=== PATIENT | female | born 2005 | race Hispanic/Latino ===

== ENCOUNTER 2024-12-14 11:36 | Emergency (ER) | payer BC, OTHER ==
--- OUTSIDE RECORDS SUMMARY | 2024-12-14 11:42 | XMS REPORT | Continuity of Care Document ---
Author Name Unknown Address [address] [facility] [place] [address] [facility] Address [address] [facility] [place] [address] Care Team Providers Care Parole Supervisor Name Role Phone CARMELITA VOGEL Primary Care Physician Unavailab JOSE Peacock Attending Clinician Unavailable IZZY WOODSON Attending Clinician Unavail able JOEY GOMEZ Attending Clinician Unavailable JOSE PÉREZ Attending Clinician Unavailable SCOTT BUCHANAN Attending Clinician Unavailable [id number] Attending Clinician Unavailable VESNA LAURA Attending Clinician Unavailable JACINTO SALDANA Attending Clinician Unavailable Jacinto Herndon Attending Clinician [phone] Unknown, Attending Attending Clinician Unavailab Melody Blake Attending Clinician [phone] MELODY ZALDIVAR Attending Clinician Unavailable Doctor Unassigned, [place] Attending Clinician U Carmelita Lerma Attending Clinician [phone] Lab, Ang - Db Attending Clinician Unavailable Unknown, Attending Attending Clinician Unavailab CARMELITA Gu Attending Clinician Unavailable Casey White Attending Clinician Unavailable Sukhjinder Loving MD Attending Clinician [phone] Gilbert Christie Attending Clinician + [phone] GILBERT SUAREZ Attending Clinician Unavail able UNKNOWN, ATTENDING Attending Clinician Unavailab le Payers Payer Name Policy Type Policy Number Effective Date Expirati on Date Source [facility] CAPO ARVIN COPAY FOCUS 9 [id number] 2024 00:00:00 AMYTRADHA MIR [facility] [employer] RAIL 87 ON 9 [id number] 2023 00:00:00 Problems Condition Name Condition Details Condition Category Status Onset Date Resolution Date Last Treatment Date Treating Clinician Comments Source Psoriasis Psoriasis Disease Active 2023-05 00:00: 00 Myrna Velasquez Externa l Urinary frequency Urinary frequency Disease Active 11-11 00:00: 00 [facility] Stress incontinen ce Stress incontinen ce Disease Active 11-11 00:00: 00 [facility] Nocturnal enuresis Nocturnal enuresis Disease Active 11-11 00:00: 00 [facility] Encounter to establish care Encounter to establish care Disease Active 11-11 00:00: 00 [facility] Constipati on, unspecifie d constipati on type Constipati on, unspecifie d constipati on type Disease Active 11-11 00:00: 00 [facility] No known active problems No known active problems Disease [facility] Allergies, Adverse Reactions, Alerts Allergy Name Allergy Type Status Severity Reaction(s) Onset Date Inactive Date Treating Clinician Comments Source NO KNOWN ALLERGIE S Drug Class Active [facility] Social History Social Habit Start Date Stop Date Quantity Comments Source Sexual orientation 2024-04-22 08:48:30 Heterosexual (finding) Myrna Mccullough - External Exposure to SARS-CoV-2 (event) Not sure [facility] Gender identity [facility] ASSERTION Not Myrna Mccullough - External Alcoholic beverage intake 2024-11-07 00:00:00 2024-11-07 00:00:00 Lifetime non-drinker (finding) Myrna Mccullough - External History of Social function 2024-11-07 00:00:00 2024-11-07 00:00:00 Myrna Mccullough - External Tobacco use and exposure 2024-11-07 00:00:00 2024-11-07 00:00:00 Smokeless tobacco non-user Myrna Mccullough - External Sex 2023-06-14 21:32:15 2023-06-14 21:32:15 Female (finding) Myrna Mccullough - External Alcohol intake 2022-11-11 00:00:00 2022-11-11 00:00:00 Lifetime non-drinker (finding) [facility] Sex assigned at 2003 00:00:00 2005 00:00:00 F Myrna Mccullough - External Smoking Status Start Date Stop Date Source Never smoked tobacco Myrna Mccullough - External Medications Ordered Medication Name Filled Medication Name Start Date Stop Date Current Medication? Ordering Clinician Indication Dosage Frequency Signature (SIG) Comments Components Source predniSONE (DELTASONE) 10 MG oral tablet 11-07 00:00: 00 11-15 04:59 :00 Yes 30mg QD Take 3 tablets (30 mg total) by mouth daily for 7 days. Myrna bowden Paragard Intrauterin e Copper IU IUD - Physician Administere d ([id number]) 05-09 15:26: 42 No [id number] 1{each} 1 each, Physician Administer ed, ONCE, 1 dose, On Marine 05/09/24 at 1530 Myrna bowden Clobetasol Propionate 0.05 % apply externally Ointment 2023-05 2-16 00:00: 00 Yes [id number] Q.5D Apply 1 applicatio n. topically 2 times daily Apply to site twice daily for 5 days, then take 2 days off. Repeat as needed.. Myrna bowden DEXTROMETHO RPHAN HBR (DELSYM ORAL) 01-27 15:11: 46 01-27 00:00 :00 No Take by mouth. [facility] bromphenira mine-pseudo ephedrine-D M (BROMFED DM) 2-30-10 mg/5 mL syrup 01-27 00:00: 00 02-07 04:59 :00 No [id number] 5mL Take 5 mL by mouth 4 (four) times daily as needed for Congestion /Allergies or Cough for up to 10 days. [facility] methylPREDN ISolone 4 mg tablets 01-27 00:00: 00 02-03 04:59 :00 No [id number] Take by mouth SEE-INSTRU CTIONS for 6 days. follow package directions [facility] tuberculin ppd (TUBERSOL) injection 5 Units 10-28 16:15: 00 10-28 15:25 :00 No [id number] 5U [facility] DEXTROMETHO RPHAN HBR (DELSYM ORAL) 12-20 18:51: 34 Yes Take by mouth. [facility] IBUPROFEN/D IPHENHYDRAM INE CIT (ADVIL PM ORAL) 12-20 18:51: 34 Yes Take by mouth. [facility] DEXTROMEO RPHAN HBR (DELSYM ORAL) 12-20 13:51: 34 Yes Take by mouth. [facility] DEXTROMETHO RPHAN HBR (DELSYM ORAL) 2016-05 19:59: 36 Yes Take by mouth. [facility] IBUPROFEN/D IPHENHYDRAM INE CIT (ADVIL PM ORAL) 2016-05 19:59: 36 Yes Take by mouth. [facility] GUAIFENESIN /CODEINE PHOSPHATE (ROBITUSSIN A-C ORAL) 09-12 21:15: 17 Yes 10mL Take 10 mL by mouth. [facility] GUAIFENESIN /CODEINE PHOSPHATE (ROBITUSSIN A-C ORAL) 09-12 16:15: 17 Yes 10mL Take 10 mL by mouth. [facility] levothyroxi ne 50 mcg tablet 06-25 00:00: 00 Yes 50ug Take 50 mcg by mouth. [facility] Immunizations Ordered Immunization Name Filled Immunization Name Date Status Comments Source Meningococcal Polysaccharide (groups A, C, Y and W-135) conjugate vaccine (MCV4P) 2023-12-20 17:00:00 Completed [facility] TDAP 2023-12-20 17:00:00 Completed [facility] DTAP 2023-12-20 17:00:00 Completed [facility] HIB 4 Dose Schedule 2023-12-20 17:00:00 Completed [facility] HEPATITIS A 2023-12-20 17:00:00 Completed [facility] Hep B, Adol or Pedi Dosage 2023-12-20 17:00:00 Completed [facility] MMR 2023-12-20 17:00:00 Completed [facility] Pneumococcal 13 Conjugate, PCV13 (Prevnar 13) 2023-12-20 17:00:00 Completed [facility] Polio (IPV/OPV) 2023-12-20 17:00:00 Completed [facility] Varicella (varivax)(chicken pox) 2023-12-20 17:00:00 Completed [facility] Meningococcal B, OMV 2023-12-20 17:00:00 Completed [facility] Meningococcal Polysaccharide (groups A, C, Y and W-135) conjugate vaccine (MCV4P) 2023-01-30 00:00:00 Completed [facility] TDAP 2023-01-30 00:00:00 Completed [facility] DTAP 2023-01-30 00:00:00 Completed [facility] HIB 4 Dose Schedule 2023-01-30 00:00:00 Completed [facility] HEPATITIS A 2023-01-30 00:00:00 Completed [facility] Hep B, Adol or Pedi Dosage 2023-01-30 00:00:00 Completed [facility] MMR 2023-01-30 00:00:00 Completed [facility] Pneumococcal 13 Conjugate, PCV13 (Prevnar 13) 2023-01-30 00:00:00 Completed [facility] Polio (IPV/OPV) 2023-01-30 00:00:00 Completed [facility] Varicella (varivax)(chicken pox) 2023-01-30 00:00:00 Completed [facility] Meningococcal B, OMV 2023-01-30 00:00:00 Completed [facility] TDAP 2023-01-27 14:30:00 Completed [facility] DTAP 2023-01-27 14:30:00 Completed [facility] HIB 4 Dose Schedule 2023-01-27 14:30:00 Completed [facility] HEPATITIS A 2023-01-27 14:30:00 Completed [facility] Hep B, Adol or Pedi Dosage 2023-01-27 14:30:00 Completed [facility] MMR 2023-01-27 14:30:00 Completed [facility] Pneumococcal 13 Conjugate, PCV13 (Prevnar 13) 2023-01-27 14:30:00 Completed [facility] Polio (IPV/OPV) 2023-01-27 14:30:00 Completed [facility] Varicella (varivax)(chicken pox) 2023-01-27 14:30:00 Completed [facility] Meningococcal B, OMV 2023-01-27 14:30:00 Completed [facility] Meningococcal Polysaccharide (groups A, C, Y and W-135) conjugate vaccine (MCV4P) 2023-01-27 14:30:00 Completed [facility] Meningococcal Polysaccharide (groups A, C, Y and W-135) conjugate vaccine (MCV4P) 2022-11-15 00:00:00 Completed [facility] TDAP 2022-11-15 00:00:00 Completed [facility] DTAP 2022-11-15 00:00:00 Completed [facility] HIB 4 Dose Schedule 2022-11-15 00:00:00 Completed [facility] HEPATITIS A 2022-11-15 00:00:00 Completed [facility] Hep B, Adol or Pedi Dosage 2022-11-15 00:00:00 Completed [facility] MMR 2022-11-15 00:00:00 Completed [facility] Pneumococcal 13 Conjugate, PCV13 (Prevnar 13) 2022-11-15 00:00:00 Completed [facility] Polio (IPV/OPV) 2022-11-15 00:00:00 Completed [facility] Varicella (varivax)(chicken pox) 2022-11-15 00:00:00 Completed [facility] Meningococcal B, OMV 2022-11-15 00:00:00 Completed [facility] Meningococcal Polysaccharide (groups A, C, Y and W-135) conjugate vaccine (MCV4P) 2020-10-19 00:00:00 Completed [facility] Meningococcal B, OMV 2020-10-19 00:00:00 Completed [facility] Meningococcal Polysaccharide (groups A, C, Y and W-135) conjugate vaccine (MCV4P) 2020-10-19 00:00:00 Completed [facility] Meningococcal B, OMV 2020-10-19 00:00:00 Completed [facility] Meningococcal Polysaccharide (groups A, C, Y and W-135) conjugate vaccine (MCV4P) 2020-10-19 00:00:00 Completed [facility] Meningococcal B, OMV 2020-10-19 00:00:00 Completed [facility] Meningococcal Polysaccharide (groups A, C, Y and W-135) conjugate vaccine (MCV4P) 2020-10-19 00:00:00 Completed [facility] Meningococcal B, OMV 2020-10-19 00:00:00 Completed [facility] Meningococcal Polysaccharide (groups A, C, Y and W-135) conjugate vaccine (MCV4P) 2020-10-19 00:00:00 Completed [facility] Meningococcal B, OMV 2020-10-19 00:00:00 Completed [facility] Meningococcal Polysaccharide (groups A, C, Y and W-135) conjugate vaccine (MCV4P) 2020-10-19 00:00:00 Completed [facility] Meningococcal B, OMV 2020-10-19 00:00:00 Completed [facility] Meningococcal Polysaccharide (groups A, C, Y and W-135) conjugate vaccine (MCV4P) 2020-10-19 00:00:00 Completed [facility] Meningococcal B, OMV 2020-10-19 00:00:00 Completed [facility] Meningococcal Polysaccharide (groups A, C, Y and W-135) conjugate vaccine (MCV4P) 2014-12-08 00:00:00 Completed [facility] Tdap 2014-12-08 00:00:00 Completed [facility] Meningococcal Polysaccharide (groups A, C, Y and W-135) conjugate vaccine (MCV4P) 2014-12-08 00:00:00 Completed [facility] TDAP 2014-12-08 00:00:00 Completed [facility] Meningococcal Polysaccharide (groups A, C, Y and W-135) conjugate vaccine (MCV4P) 2014-12-08 00:00:00 Completed [facility] TDAP 2014-12-08 00:00:00 Completed [facility] Meningococcal Polysaccharide (groups A, C, Y and W-135) conjugate vaccine (MCV4P) 2014-12-08 00:00:00 Completed [facility] Tdap 2014-12-08 00:00:00 Completed [facility] Meningococcal Polysaccharide (groups A, C, Y and W-135) conjugate vaccine (MCV4P) 2014-12-08 00:00:00 Completed [facility] TDAP 2014-12-08 00:00:00 Completed [facility] Meningococcal Polysaccharide (groups A, C, Y and W-135) conjugate vaccine (MCV4P) 2014-12-08 00:00:00 Completed [facility] TDAP 2014-12-08 00:00:00 Completed [facility] Meningococcal Polysaccharide (groups A, C, Y and W-135) conjugate vaccine (MCV4P) 2014-12-08 00:00:00 Completed [facility] TDAP 2014-12-08 00:00:00 Completed [facility] Meningococcal Polysaccharide (groups A, C, Y and W-135) conjugate vaccine (MCV4P) 2014-12-08 00:00:00 Completed [facility] TDAP 2014-12-08 00:00:00 Completed [facility] Meningococcal Polysaccharide (groups A, C, Y and W-135) conjugate vaccine (MCV4P) 2014-12-08 00:00:00 Completed [facility] TDAP 2014-12-08 00:00:00 Completed [facility] Meningococcal Polysaccharide (groups A, C, Y and W-135) conjugate vaccine (MCV4P) 2014-12-08 00:00:00 Completed [facility] TDAP 2014-12-08 00:00:00 Completed [facility] HEPATITIS A 2007-08-22 00:00:00 Completed [facility] Varicella (varivax)(chicken pox) 2007-08-22 00:00:00 Completed [facility] HEPATITIS A 2007-08-22 00:00:00 Completed [facility] Varicella (varivax)(chicken pox) 2007-08-22 00:00:00 Completed [facility] HEPATITIS A 2007-08-22 00:00:00 Completed [facility] Varicella (varivax)(chicken pox) 2007-08-22 00:00:00 Completed [facility] HEPATITIS A 2007-08-22 00:00:00 Completed [facility] Varicella (varivax)(chicken pox) 2007-08-22 00:00:00 Completed [facility] HEPATITIS A 2007-08-22 00:00:00 Completed [facility] HEPATITIS A 2007-08-22 00:00:00 Completed [facility] Varicella (varivax)(chicken pox) 2007-08-22 00:00:00 Completed [facility] HEPATITIS A 2007-08-22 00:00:00 Completed [facility] Varicella (varivax)(chicken pox) 2007-08-22 00:00:00 Completed [facility] HEPATITIS A 2007-08-22 00:00:00 Completed [facility] Varicella (varivax)(chicken pox) 2007-08-22 00:00:00 Completed [facility] Varicella (varivax)(chicken pox) 2007-08-22 00:00:00 Completed [facility] HEPATITIS A 2007-08-22 00:00:00 Completed [facility] Varicella (varivax)(chicken pox) 2007-08-22 00:00:00 Completed [facility] HEPATITIS A 2007-08-22 00:00:00 Completed [facility] Varicella (varivax)(chicken pox) 2007-08-22 00:00:00 Completed [facility] HEPATITIS A 2007-02-08 00:00:00 Completed [facility] MMR 2007-02-08 00:00:00 Completed [facility] Polio (IPV/OPV) 2007-02-08 00:00:00 Completed [facility] HEPATITIS A 2007-02-08 00:00:00 Completed [facility] MMR 2007-02-08 00:00:00 Completed [facility] Polio (IPV/OPV) 2007-02-08 00:00:00 Completed [facility] HEPATITIS A 2007-02-08 00:00:00 Completed [facility] MMR 2007-02-08 00:00:00 Completed [facility] Polio (IPV/OPV) 2007-02-08 00:00:00 Completed [facility] HEPATITIS A 2007-02-08 00:00:00 Completed [facility] MMR 2007-02-08 00:00:00 Completed [facility] Polio (IPV/OPV) 2007-02-08 00:00:00 Completed [facility] HEPATITIS A 2007-02-08 00:00:00 Completed [facility] HEPATITIS A 2007-02-08 00:00:00 Completed [facility] MMR 2007-02-08 00:00:00 Completed [facility] Polio (IPV/OPV) 2007-02-08 00:00:00 Completed [facility] MMR 2007-02-08 00:00:00 Completed [facility] HEPATITIS A 2007-02-08 00:00:00 Completed [facility] MMR 2007-02-08 00:00:00 Completed [facility] Polio (IPV/OPV) 2007-02-08 00:00:00 Completed [facility] HEPATITIS A 2007-02-08 00:00:00 Completed [facility] MMR 2007-02-08 00:00:00 Completed [facility] Polio (IPV/OPV) 2007-02-08 00:00:00 Completed [facility] Polio (IPV/OPV) 2007-02-08 00:00:00 Completed [facility] HEPATITIS A 2007-02-08 00:00:00 Completed [facility] MMR 2007-02-08 00:00:00 Completed [facility] Polio (IPV/OPV) 2007-02-08 00:00:00 Completed [facility] HEPATITIS A 2007-02-08 00:00:00 Completed [facility] MMR 2007-02-08 00:00:00 Completed [facility] Polio (IPV/OPV) 2007-02-08 00:00:00 Completed [facility] DTAP 2005-01-20 00:00:00 Completed [facility] HIB 4 Dose Schedule 2005-01-20 00:00:00 Completed [facility] MMR 2005-01-20 00:00:00 Completed [facility] Pneumococcal 13 Conjugate, PCV13 (Prevnar 13) 2005-01-20 00:00:00 Completed [facility] DTAP 2005-01-20 00:00:00 Completed [facility] HIB 4 Dose Schedule 2005-01-20 00:00:00 Completed [facility] MMR 2005-01-20 00:00:00 Completed [facility] Pneumococcal 13 Conjugate, PCV13 (Prevnar 13) 2005-01-20 00:00:00 Completed [facility] DTAP 2005-01-20 00:00:00 Completed [facility] HIB 4 Dose Schedule 2005-01-20 00:00:00 Completed [facility] MMR 2005-01-20 00:00:00 Completed [facility] Pneumococcal 13 Conjugate, PCV13 (Prevnar 13) 2005-01-20 00:00:00 Completed [facility] DTAP 2005-01-20 00:00:00 Completed [facility] DTAP 2005-01-20 00:00:00 Completed [facility] HIB 4 Dose Schedule 2005-01-20 00:00:00 Completed [facility] MMR 2005-01-20 00:00:00 Completed [facility] HIB 4 Dose Schedule 2005-01-20 00:00:00 Completed [facility] Pneumococcal 13 Conjugate, PCV13 (Prevnar 13) 2005-01-20 00:00:00 Completed [facility] DTAP 2005-01-20 00:00:00 Completed [facility] HIB 4 Dose Schedule 2005-01-20 00:00:00 Completed [facility] MMR 2005-01-20 00:00:00 Completed [facility] Pneumococcal 13 Conjugate, PCV13 (Prevnar 13) 2005-01-20 00:00:00 Completed [facility] MMR 2005-01-20 00:00:00 Completed [facility] DTAP 2005-01-20 00:00:00 Completed [facility] HIB 4 Dose Schedule 2005-01-20 00:00:00 Completed [facility] MMR 2005-01-20 00:00:00 Completed [facility] Pneumococcal 13 Conjugate, PCV13 (Prevnar 13) 2005-01-20 00:00:00 Completed [facility] Pneumococcal 13 Conjugate, PCV13 (Prevnar 13) 2005-01-20 00:00:00 Completed [facility] DTAP 2005-01-20 00:00:00 Completed [facility] HIB 4 Dose Schedule 2005-01-20 00:00:00 Completed [facility] MMR 2005-01-20 00:00:00 Completed [facility] Pneumococcal 13 Conjugate, PCV13 (Prevnar 13) 2005-01-20 00:00:00 Completed [facility] DTAP 2005-01-20 00:00:00 Completed [facility] HIB 4 Dose Schedule 2005-01-20 00:00:00 Completed [facility] MMR 2005-01-20 00:00:00 Completed [facility] Pneumococcal 13 Conjugate, PCV13 (Prevnar 13) 2005-01-20 00:00:00 Completed [facility] DTAP 2005-01-20 00:00:00 Completed [facility] HIB 4 Dose Schedule 2005-01-20 00:00:00 Completed [facility] MMR 2005-01-20 00:00:00 Completed [facility] Pneumococcal 13 Conjugate, PCV13 (Prevnar 13) 2005-01-20 00:00:00 Completed [facility] Pneumococcal 13 Conjugate, PCV13 (Prevnar 13) 2004-01-13 00:00:00 Completed [facility] Polio (IPV/OPV) 2004-01-13 00:00:00 Completed [facility] Varicella (varivax)(chicken pox) 2004-01-13 00:00:00 Completed [facility] Pneumococcal 13 Conjugate, PCV13 (Prevnar 13) 2004-01-13 00:00:00 Completed [facility] Polio (IPV/OPV) 2004-01-13 00:00:00 Completed [facility] Varicella (varivax)(chicken pox) 2004-01-13 00:00:00 Completed [facility] Pneumococcal 13 Conjugate, PCV13 (Prevnar 13) 2004-01-13 00:00:00 Completed [facility] Polio (IPV/OPV) 2004-01-13 00:00:00 Completed [facility] Varicella (varivax)(chicken pox) 2004-01-13 00:00:00 Completed [facility] Pneumococcal 13 Conjugate, PCV13 (Prevnar 13) 2004-01-13 00:00:00 Completed [facility] Polio (IPV/OPV) 2004-01-13 00:00:00 Completed [facility] Varicella (varivax)(chicken pox) 2004-01-13 00:00:00 Completed [facility] Pneumococcal 13 Conjugate, PCV13 (Prevnar 13) 2004-01-13 00:00:00 Completed [facility] Polio (IPV/OPV) 2004-01-13 00:00:00 Completed [facility] Varicella (varivax)(chicken pox) 2004-01-13 00:00:00 Completed [facility] Pneumococcal 13 Conjugate, PCV13 (Prevnar 13) 2004-01-13 00:00:00 Completed [facility] Polio (IPV/OPV) 2004-01-13 00:00:00 Completed [facility] Varicella (varivax)(chicken pox) 2004-01-13 00:00:00 Completed [facility] Pneumococcal 13 Conjugate, PCV13 (Prevnar 13) 2004-01-13 00:00:00 Completed [facility] Polio (IPV/OPV) 2004-01-13 00:00:00 Completed [facility] Pneumococcal 13 Conjugate, PCV13 (Prevnar 13) 2004-01-13 00:00:00 Completed [facility] Polio (IPV/OPV) 2004-01-13 00:00:00 Completed [facility] Varicella (varivax)(chicken pox) 2004-01-13 00:00:00 Completed [facility] Varicella (varivax)(chicken pox) 2004-01-13 00:00:00 Completed [facility] Pneumococcal 13 Conjugate, PCV13 (Prevnar 13) 2004-01-13 00:00:00 Completed [facility] Polio (IPV/OPV) 2004-01-13 00:00:00 Completed [facility] Varicella (varivax)(chicken pox) 2004-01-13 00:00:00 Completed [facility] Pneumococcal 13 Conjugate, PCV13 (Prevnar 13) 2004-01-13 00:00:00 Completed [facility] Polio (IPV/OPV) 2004-01-13 00:00:00 Completed [facility] Varicella (varivax)(chicken pox) 2004-01-13 00:00:00 [facility] [facility] 00:[facility]:00 Completed [facility] HIB 4 Dose Schedule 2003 00:00:00 Completed [facility] Hep B, Adol or Pedi Dosage 2003 00:00:00 Completed [facility] Pneumococcal 13 Conjugate, PCV13 (Prevnar 13) 2003 00:00:00 Completed [facility] DTAP 2003 00:00:00 Completed [facility] HIB 4 Dose Schedule 2003 00:00:00 Completed [facility] Hep B, Adol or Pedi Dosage 2003 00:00:00 Completed [facility] Pneumococcal 13 Conjugate, PCV13 (Prevnar 13) 2003 00:00:00 Completed [facility] DTAP 2003 00:00:00 Completed [facility] HIB 4 Dose Schedule 2003 00:00:00 Completed [facility] Hep B, Adol or Pedi Dosage 2003 00:00:00 Completed [facility] Pneumococcal 13 Conjugate, PCV13 (Prevnar 13) 2003 00:00:00 Completed [facility] DTAP 2003 00:00:00 Completed [facility] DTAP 2003 00:00:00 Completed [facility] HIB 4 Dose Schedule 2003 00:00:00 Completed [facility] HIB 4 Dose Schedule 2003 00:00:00 Completed [facility] Hep B, Adol or Pedi Dosage 2003 00:00:00 Completed [facility] Pneumococcal 13 Conjugate, PCV13 (Prevnar 13) 2003 00:00:00 Completed [facility] DTAP 2003 00:00:00 Completed [facility] HIB 4 Dose Schedule 2003 00:00:00 Completed [facility] Hep B, Adol or Pedi Dosage 2003 00:00:00 Completed [facility] Pneumococcal 13 Conjugate, PCV13 (Prevnar 13) 2003 00:00:00 Completed [facility] Hep B, Adol or Pedi Dosage 2003 00:00:00 Completed [facility] DTAP 2003 00:00:00 Completed [facility] HIB 4 Dose Schedule 2003 00:00:00 Completed [facility] Hep B, Adol or Pedi Dosage 2003 00:00:00 Completed [facility] Pneumococcal 13 Conjugate, PCV13 (Prevnar 13) 2003 00:00:00 Completed [facility] Pneumococcal 13 Conjugate, PCV13 (Prevnar 13) 2003 00:00:00 Completed [facility] DTAP 2003 00:00:00 Completed [facility] HIB 4 Dose Schedule 2003 00:00:00 Completed [facility] Hep B, Adol or Pedi Dosage 2003 00:00:00 Completed [facility] Pneumococcal 13 Conjugate, PCV13 (Prevnar 13) 2003 00:00:00 Completed [facility] DTAP 2003 00:00:00 Completed [facility] HIB 4 Dose Schedule 2003 00:00:00 Completed [facility] Hep B, Adol or Pedi Dosage 2003 00:00:00 Completed [facility] Pneumococcal 13 Conjugate, PCV13 (Prevnar 13) 2003 00:00:00 Completed [facility] DTAP 2003 00:00:00 Completed [facility] HIB 4 Dose Schedule 2003 00:00:00 Completed [facility] Hep B, Adol or Pedi Dosage 2003 00:00:00 Completed [facility] Pneumococcal 13 Conjugate, PCV13 (Prevnar 13) 2003 00:00:00 Completed [facility] DTAP 2003 00:00:00 Completed [facility] HIB 4 Dose Schedule 2003 00:00:00 Completed [facility] Pneumococcal 13 Conjugate, PCV13 (Prevnar 13) 2003 00:00:00 Completed [facility] Polio (IPV/OPV) 2003 00:00:00 Completed [facility] DTAP 2003 00:00:00 Completed [facility] HIB 4 Dose Schedule 2003 00:00:00 Completed [facility] Pneumococcal 13 Conjugate, PCV13 (Prevnar 13) 2003 00:00:00 Completed [facility] Polio (IPV/OPV) 2003 00:00:00 Completed [facility] DTAP 2003 00:00:00 Completed [facility] HIB 4 Dose Schedule 2003 00:00:00 Completed [facility] Pneumococcal 13 Conjugate, PCV13 (Prevnar 13) 2003 00:00:00 Completed [facility] Polio (IPV/OPV) 2003 00:00:00 Completed [facility] DTAP 2003 00:00:00 Completed [facility] HIB 4 Dose Schedule 2003 00:00:00 Completed [facility] DTAP 2003 00:00:00 Completed [facility] HIB 4 Dose Schedule 2003 00:00:00 Completed [facility] Pneumococcal 13 Conjugate, PCV13 (Prevnar 13) 2003 00:00:00 Completed [facility] Polio (IPV/OPV) 2003 00:00:00 Completed [facility] DTAP 2003 00:00:00 Completed [facility] HIB 4 Dose Schedule 2003 00:00:00 Completed [facility] Pneumococcal 13 Conjugate, PCV13 (Prevnar 13) 2003 00:00:00 Completed [facility] Polio (IPV/OPV) 2003 00:00:00 Completed [facility] DTAP 2003 00:00:00 Completed [facility] Pneumococcal 13 Conjugate, PCV13 (Prevnar 13) 2003 00:00:00 Completed [facility] HIB 4 Dose Schedule 2003 00:00:00 Completed [facility] Pneumococcal 13 Conjugate, PCV13 (Prevnar 13) 2003 00:00:00 Completed [facility] Polio (IPV/OPV) 2003 00:00:00 Completed [facility] Polio (IPV/OPV) 2003 00:00:00 Completed [facility] DTAP 2003 00:00:00 Completed [facility] HIB 4 Dose Schedule 2003 00:00:00 Completed [facility] Pneumococcal 13 Conjugate, PCV13 (Prevnar 13) 2003 00:00:00 Completed [facility] Polio (IPV/OPV) 2003 00:00:00 Completed [facility] DTAP 2003 00:00:00 Completed [facility] HIB 4 Dose Schedule 2003 00:00:00 Completed [facility] Pneumococcal 13 Conjugate, PCV13 (Prevnar 13) 2003 00:00:00 Completed [facility] Polio (IPV/OPV) 2003 00:00:00 Completed [facility] DTAP 2003 00:00:00 Completed [facility] HIB 4 Dose Schedule 2003 00:00:00 Completed [facility] Pneumococcal 13 Conjugate, PCV13 (Prevnar 13) 2003 00:00:00 Completed [facility] Polio (IPV/OPV) 2003 00:00:00 Completed [facility] DTAP 2003 00:00:00 Completed [facility] HIB 4 Dose Schedule 2003 00:00:00 Completed [facility] Hep B, Adol or Pedi Dosage 2003 00:00:00 Completed [facility] Polio (IPV/OPV) 2003 00:00:00 Completed [facility] DTAP 2003 00:00:00 Completed [facility] HIB 4 Dose Schedule 2003 00:00:00 Completed [facility] Hep B, Adol or Pedi Dosage 2003 00:00:00 Completed [facility] Polio (IPV/OPV) 2003 00:00:00 Completed [facility] DTAP 2003 00:00:00 Completed [facility] HIB 4 Dose Schedule 2003 00:00:00 Completed [facility] Hep B, Adol or Pedi Dosage 2003 00:00:00 Completed [facility] Polio (IPV/OPV) 2003 00:00:00 Completed [facility] DTAP 2003 00:00:00 Completed [facility] HIB 4 Dose Schedule 2003 00:00:00 Completed [facility] DTAP 2003 00:00:00 Completed [facility] HIB 4 Dose Schedule 2003 00:00:00 Completed [facility] Hep B, Adol or Pedi Dosage 2003 00:00:00 Completed [facility] Polio (IPV/OPV) 2003 00:00:00 Completed [facility] DTAP 2003 00:00:00 Completed [facility] HIB 4 Dose Schedule 2003 00:00:00 Completed [facility] Hep B, Adol or Pedi Dosage 2003 00:00:00 Completed [facility] Hep B, Adol or Pedi Dosage 2003 00:00:00 Completed [facility] Polio (IPV/OPV) 2003 00:00:00 Completed [facility] DTAP 2003 00:00:00 Completed [facility] HIB 4 Dose Schedule 2003 00:00:00 Completed [facility] Hep B, Adol or Pedi Dosage 2003 00:00:00 Completed [facility] Polio (IPV/OPV) 2003 00:00:00 Completed [facility] Polio (IPV/OPV) 2003 00:00:00 Completed [facility] DTAP 2003 00:00:00 Completed [facility] HIB 4 Dose Schedule 2003 00:00:00 Completed [facility] Hep B, Adol or Pedi Dosage 2003 00:00:00 Completed [facility] Polio (IPV/OPV) 2003 00:00:00 Completed [facility] DTAP 2003 00:00:00 Completed [facility] HIB 4 Dose Schedule 2003 00:00:00 Completed [facility] Hep B, Adol or Pedi Dosage 2003 00:00:00 Completed [facility] Polio (IPV/OPV) 2003 00:00:00 Completed [facility] DTAP 2003 00:00:00 Completed [facility] HIB 4 Dose Schedule 2003 00:00:00 Completed [facility] Hep B, Adol or Pedi Dosage 2003 00:00:00 Completed [facility] Polio (IPV/OPV) 2003 00:00:00 Completed [facility] Hep B, Adol or Pedi Dosage 2003 00:00:00 Completed [facility] Hep B, Adol or Pedi Dosage 2003 00:00:00 Completed [facility] Hep B, Adol or Pedi Dosage 2003 00:00:00 Completed [facility] Hep B, Adol or Pedi Dosage 2003 00:00:00 Completed [facility] Hep B, Adol or Pedi Dosage 2003 00:00:00 Completed [facility] Hep B, Adol or Pedi Dosage 2003 00:00:00 Completed [facility] Hep B, Adol or Pedi Dosage 2003 00:00:00 Completed [facility] Hep B, Adol or Pedi Dosage 2003 00:00:00 Completed [facility] Hep B, Adol or Pedi Dosage 2003 00:00:00 Completed [facility] Hep B, Adol or Pedi Dosage 2003 00:00:00 Completed [facility] HEPATITIS A- PEDI/ADOL Unknown Completed Myrna Gonzalesybold - External Hepatitis B, Adolescent Or Pediatric Unknown Completed Myrna Gonzalesybold - External HIB- Haemophilus Influenzae Type B Unknown Completed Myrna Estrada bold - External Meningococcal Vaccine- Conjugate(Menactra) Unknown Completed Myrna Noriega eybold - External Meningococcal Vaccine- Conjugate(Menactra) Unknown Completed [facility] eybold - External Bexsero (Meningococcal Group B) Unknown Completed Myrna Seybold - External MMR- Measles, Mumps, Rubella Unknown Completed Myrna Seybold - External Pneumococcal Vaccine, Conjugate 7 Unknown Completed Myrna Gonzalesybold - External IPV- Inactivated Polio Vaccine Unknown Completed Myrna Seybold - External Tdap- (Boostrix, Adacel) Unknown Completed Myrna Seybold - External Varicella Vaccine Unknown Completed Ke lsey Seybold - External DTaP Unspecified Unknown Completed Myke estrada Seybold - External Hep A, ped/adol, 3 dose Unknown Completed Myrna Seybold - External HEPATITIS A- PEDI/ADOL Unknown Completed Myrna Seybold - External Hepatitis B, Adolescent Or Pediatric Unknown Completed Myrna Seold - External HIB- Haemophilus Influenzae Type B Unknown Completed Myrna banks - External Meningococcal Vaccine- Conjugate(Menactra) Unknown Completed Myrna Noriega eybold - External Meningococcal Vaccine- Conjugate(Menactra) Unknown Completed Myrna S eybold - External Bexsero (Meningococcal Group B) Unknown Completed Myrna Gonzalesybold - External MMR- Measles, Mumps, Rubella Unknown Completed Myrna Gonzalesybold - External Pneumococcal Vaccine, Conjugate 7 Unknown Completed Myrna Gonzalesybold - External IPV- Inactivated Polio Vaccine Unknown Completed Myrna Seybold - External Tdap- (Boostrix, Adacel) Unknown Completed Myrna Seybold - External Varicella Vaccine Unknown Completed Ke lsey Seybold - External DTaP Unspecified Unknown Completed Myke estrada Seybold - External Hep A, ped/adol, 3 dose Unknown Completed Myrna Seybold - External HEPATITIS A- PEDI/ADOL Unknown Completed Myrna Seybold - External Hepatitis B, Adolescent Or Pediatric Unknown Completed Myrna Seybold - External HIB- Haemophilus Influenzae Type B Unknown Completed Myrna Estrada bold - External Meningococcal Vaccine- Conjugate(Menactra) Unknown Completed Myrna Noriega eybold - External Meningococcal Vaccine- Conjugate(Menactra) Unknown Completed Myrna Noriega eybold - External Bexsero (Meningococcal Group B) Unknown Completed Myrna ybold - External MMR- Measles, Mumps, Rubella Unknown Completed Myrna Gonzalesybold - External Pneumococcal Vaccine, Conjugate 7 Unknown Completed Myrna Gonzalesybold - External IPV- Inactivated Polio Vaccine Unknown Completed Myrna Gonzalesybold - External Tdap- (Boostrix, Adacel) Unknown [facility] Varicella Vaccine Unknown Completed Harish lsey Seybold - External DTaP Unspecified Unknown Completed Myke estrada Seybold - External Hep A, ped/adol, 3 dose Unknown [facility] - External HEPATITIS A- PEDI/ADOL Unknown Completed Myrna Gonzalesybold - External Hepatitis B, Adolescent Or Pediatric Unknown Completed Myrna Gonzalesybold - External HIB- Haemophilus Influenzae Type B Unknown Completed Myrna Estrada bold - External Meningococcal Vaccine- Conjugate(Menactra) Unknown Completed Myrna Noriega eybold - External Meningococcal Vaccine- Conjugate(Menactra) Unknown Completed Myrna eybold - External Bexsero (Meningococcal Group B) Unknown Completed Myrna Gonzalesybold - External MMR- Measles, Mumps, Rubella Unknown Completed Myrna ybold - External Pneumococcal Vaccine, Conjugate 7 Unknown [facility] IPV- Inactivated Polio Vaccine Unknown Completed Myrna Santiagoold - External Tdap- (Boostrix, Adacel) Unknown Completed Myrna Gonzalesybold - External Varicella Vaccine Unknown Completed Harish lsey Seybold - External DTaP Unspecified Unknown Completed Myke estrada Seybold - External Hep A, ped/adol, 3 dose Unknown Completed Mryna Gonzalesybold - External Vital Signs Vital Name Observation Time Observation Value Comments S ourilsa Systolic blood pressure 2024-11-07 16:50:00 121 mm[Hg] Myrna Vaca ld - External Diastolic blood pressure 2024-11-07 16:50:00 77 mm[Hg] Myrna Vaca ld - External Heart rate 2024-11-07 16:50:00 68 /min Mykese martin Mccullough - External Body temperature 2024-11-07 16:50:00 36.5 Claudia Myrna Gonzalesybold - External Respiratory rate 2024-11-07 16:50:00 18 /min Myrna Seybold - External Body height 2024-11-07 16:50:00 162.6 cm Natasha ey Seybold - External Body weight 2024-11-07 16:50:00 85.639 kg Natasha ey Seybold - External BMI 2024-11-07 16:50:00 32.41 kg/m2 Natasha ey Seybold - External Oxygen saturation in Arterial blood by Pulse oximetry 2024-11-07 16:50:00 98 /min Myrna Seybo ld - External Systolic blood pressure 2024-05-09 19:39:00 100 mm[Hg] Myrna Seybo ld - External Diastolic blood pressure 2024-05-09 19:39:00 68 mm[Hg] Myrna Seybo ld - External Heart rate 2024-05-09 19:39:00 74 /min Kelse y Seybold - External Respiratory rate 2024-05-09 19:39:00 17 /min Myrna Seybold - External Body height 2024-05-09 19:39:00 162.6 cm Natasha ey Seybold - External Body weight 2024-05-09 19:39:00 81.647 kg Natasha ey Seybold - External BMI 2024-05-09 19:39:00 30.90 kg/m2 Natasha ey Seybold - External Systolic blood pressure 2024-04-22 19:57:00 102 mm[Hg] Myrna Seybo ld - External Diastolic blood pressure 2024-04-22 19:57:00 74 mm[Hg] Myrna Seybo ld - External Heart rate 2024-04-22 19:57:00 85 /min Kelse y Seybold - External Respiratory rate 2024-04-22 19:57:00 17 /min Myrna Seybold - External Body height 2024-04-22 19:57:00 162.6 cm Natasha ey Seybold - External Body weight 2024-04-22 19:57:00 80.74 kg Natasha ey Seybold - External BMI 2024-04-22 19:57:00 30.55 kg/m2 Natasha ey Seybold - External Systolic blood pressure 2024-04-22 14:12:00 100 mm[Hg] Myrna Seybo ld - External Diastolic blood pressure 2024-04-22 14:12:00 64 mm[Hg] Myrna Santiagoo ld - External Heart rate 2024-04-22 14:12:00 63 /min Selene Mccullough - External Body temperature 2024-04-22 14:12:00 36.5 Claudia Myrna Mccullough - External Respiratory rate 2024-04-22 14:12:00 16 /min Myrna Santiagoold - External Body height 2024-04-22 14:12:00 165 cm Natasha garcia Seybold - External Body weight 2024-04-22 14:12:00 80.74 kg Natasha garcia Seybold - External BMI 2024-04-22 14:12:00 29.66 kg/m2 Natasha garcia Seybalex - External Oxygen saturation in Arterial blood by Pulse oximetry 2024-04-22 14:12:00 99 /min Myrna Vaca ld - External Systolic blood pressure 2023-12-20 22:21:00 131 mm[Hg] [facility] Diastolic blood pressure 2023-12-20 22:21:00 82 mm[Hg] [facility] Heart rate 2023-12-20 22:21:00 92 /[facility] Body temperature 2023-12-20 22:21:00 37.17 Claudia [facility] Respiratory rate 2023-12-20 22:21:00 16 /min [facility] Body weight 2023-12-20 22:21:[address] [facility] Oxygen saturation in Arterial blood by Pulse oximetry 2023-12-20 22:21:00 97 /min [facility] Systolic blood pressure 2023-01-27 20:13:00 110 mm[Hg] [facility] Diastolic blood pressure 2023-01-27 20:13:00 74 mm[Hg] [facility] Heart rate 2023-01-27 20:13:00 79 /min Unive [facility] Body temperature 2023-01-27 20:13:00 36.83 Claudia [facility] Body height 2023-01-27 20:13:[address] [facility] Body weight 2023-01-27 20:13:[address] [facility] BMI 2023-01-27 20:13:00 30.87 kg/m2 Univ [facility] Oxygen saturation in Arterial blood by Pulse oximetry 2023-01-27 20:13:00 100 /min [facility] Systolic blood pressure 2022-11-11 20:08:00 101 mm[Hg] [facility] Diastolic blood pressure 2022-11-11 20:08:00 67 mm[Hg] [facility] Heart rate 2022-11-11 20:08:00 71 /[facility] 2022-11-11 20:08:00 36.78 Claudia [facility] Respiratory rate 2022-11-11 20:08:00 18 /min [facility] Body height 2022-11-11 20:08:00 [facility] weight 2022-11-11 20:08:[address] [facility] BMI 2022-11-11 20:08:00 31.02 kg/m2 [facility] O[facility] in Arterial blood by Pulse oximetry 2022-11-11 20:08:00 98 /min [facility] Body weight 2020-10-28 15:13:[address] [facility] Systolic blood pressure 2020-10-19 19:38:00 100 mm[Hg] [facility] Diastolic blood pressure 2020-10-19 19:38:00 68 mm[Hg] [facility] Heart rate 2020-10-19 19:38:00 72 /min [facility] Body temperature 2020-10-19 19:38:00 37.17 Claudia [facility] Respiratory rate 2020-10-19 19:38:00 17 /min [facility] Body height 2020-10-19 19:38:00 164 [facility] Body weight 2020-10-19 19:38:00 85.9 [facility] BMI 2020-10-19 19:38:00 31.94 kg/m2 [facility] Oxygen saturation in Arterial blood by Pulse oximetry 2020-10-19 19:38:00 97 /min [facility] Systolic blood pressure 2018-12-20 18:51:00 97 mm[Hg] [facility] Diastolic blood pressure 2018-12-20 18:51:00 64 mm[Hg] [facility] Heart rate 2018-12-20 18:51:00 71 /min Unive [facility] Body temperature 2018-12-20 18:51:00 36.28 Claudia [facility] Respiratory rate 2018-12-20 18:51:00 16 /min [facility] Body height 2018-12-20 18:51:00 165.1 cm [facility] Body weight 2018-12-20 18:51:00 82.555 kg [facility] BMI 2018-12-20 18:51:00 30.29 kg/m2 [facility] Procedures Procedure Date / Time Performed Performing Clinician Source URINE TEST-BACK OFFICE TEST 2024-05-09 21:26:00 Joey Gomez - External POCT SARS-COV-2 ANTIGEN (BINAX NOW) 2023-12-20 00:00:00 Jacinto Saldana [facility] POCT MOLECULAR FLU 2023-01-27 19:47:00 Melody Zaldiavr [facility] POCT MOLECULAR STREP 2023-01-27 19:45:00 Venkat Zaldivar [facility] CBC WITH DIFF 2022-11-11 21:29:00 Carmelita Vogel [facility] URINE CULTURE 2022-11-11 21:22:00 Carmelita Vogel [facility] POCT URINALYSIS 2022-11-11 21:15:00 [facility] CONSENT/REFUSAL FOR DIAGNOSIS AND TREATMENT 2022-11-11 19:46:58 Doctor Unassigned, [place] [facility] MENACTRA (MCV4-D) VACCINE 2020-10-19 19:59:29 Gilbert Suarez [facility] MENINGOCOCCAL B VACCINE, OMV, 2 DOSE, IM 2020-10-19 19:59:29 Gilbert Suarez [facility] ASSIGNMENT OF BENEFITS 2020-10-19 19:25:27 Docto r Unassigned, [place] [facility] NOTICE OF PRIVACY PRACTICES 2018-12-20 18:39:39 Doctor Unassigned, [place] [facility] CONSENT/REFUSAL FOR DIAGNOSIS AND TREATMENT 2018-12-20 18:39:21 Doctor Unassigned, [place] [facility] Encounters Start Date/Time End Date/Time Encounter Type Admission Type Attending [facility] Care Department Encounter ID Source 2024-12-09 14:00:00 2024-12-09 14:00:00 Outpatient JOSE SAWYER [id number] [facility] 2024-11-07 12:00:00 2024-11-07 12:00:00 Outpatient MYRNA RANDALL [id number] [facility] 2024-11-07 11:45:00 2024-11-07 11:45:00 Outpatient IZZY WOODSON [id number] [facility] 2024-08-19 10:15:00 2024-08-19 10:15:00 Outpatient JOEY GOMEZ [id number] [facility] 2024-05-09 14:45:00 2024-05-09 14:45:00 Outpatient JOSE PÉREZ [id number] [facility] 2024-05-09 13:30:00 2024-05-09 13:30:00 Outpatient JOEY GOMEZ [id number] [facility] 2024-04-22 16:00:00 2024-04-22 16:00:00 Outpatient SCOTT BUCHANAN [id number] [facility] 2024-04-22 14:00:00 2024-04-22 14:00:00 Outpatient JOEY GOMEZ [id number] [facility] 2024-04-22 08:45:00 2024-04-22 08:45:00 Outpatient [id number] MYRNA RANDALL [id number] [facility] 2024-04-22 08:00:00 2024-04-22 08:00:00 Outpatient VESNA LAURA [id number] [facility] 2023-12-20 17:00:00 2023-12-20 17:36:07 Outpatient R JAYNE SALDANATADEO [facility] [id number] [facility] 2023-12-20 17:00:00 2023-12-20 17:36:07 Urgent Care Jacinto Saldana Unknown, Attending [facility] [id number] [facility] 2023-01-30 00:00:00 2023-01-30 00:00:00 Telephone Osvaldo Zaldivarthia [facility] [id number] [facility] 2023-01-27 14:30:00 2023-01-27 15:41:16 [facility] [id number] [facility] 2023-01-27 14:30:00 2023-01-27 15:41:16 [facility] [id number] [facility] 2022-11-15 00:00:00 2022-11-15 00:00:00 Patient Secure Msg Doctor Unassigned, [place] [facility] [id number] [facility] 2022-11-14 00:00:00 2022-11-14 00:00:00 Telephone Carmelita Vogel [facility] 1.2840.114 350.1.13.10 4.2.7.2.686 [id number] [facility] 2022-11-11 17:00:00 2022-11-11 17:15:00 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 Repairer Visit Lab, Ang - Db Unknown, Attending [facility] 1.2840.114 350.1.13.10 4.2.7.2.686 [id number] [facility] 2022-11-11 15:00:00 2022-11-11 16:13:52 Outpatient R CARMELITA VOGEL [facility] [id number] [facility] 2022-11-11 15:00:00 2022-11-11 16:13:52 Office Visit Carmelita Vogel [facility] 1.84.114 350.1.13.10 4.2.7.2.686 [id number] [facility] 2022-11-11 00:00:00 2022-11-11 00:00:00 Orders Only Doctor Unassigned, [place] [facility] 1.2840.114 350.1.13.10 4.2.7.2.686 [id number] [facility] 2020-10-30 11:02:54 2020-10-30 11:22:54 Nurse Visit Nurse, Sukhjinder Sy [facility] 1.2114 350.1.13.10 4.2.7.2.686 [id number] [facility] 2020-10-30 11:00:00 2020-10-30 11:00:00 Outpatient R [facility] [id number] [facility] 2020-10-28 10:12:04 2020-10-28 10:32:04 Nurse Visit Nurse, Gilbert Freeman [facility] 1.20.114 350.1.13.10 4.2.7.2.686 [id number] [facility] 2020-10-28 10:00:00 2020-10-28 10:00:00 Outpatient R [facility] [id number] [facility] 2020-10-19 14:27:59 2020-10-19 14:47:59 Office Visit Suarez [facility] 1.2.114 350.1.13.10 4.2.7.2.686 [id number] [facility] 2020-10-19 14:20:00 2020-10-19 14:20:00 Outpatient R [facility] [id number] [facility] 2020-10-19 00:00:00 2020-10-19 00:00:00 Orders Only Doctor Unassigned, [place] [facility] 1.84.114 350.1.13.10 4.2.7.2.686 [id number] [facility] 2020-10-12 14:20:00 2020-10-12 14:20:00 Outpatient R NATALIA [facility] [id number] [facility] 2020-03-16 19:15:00 2020-03-16 19:15:00 Outpatient R UNKNOWN, ATTENDING [facility] [id number] [facility] 2018-12-20 13:40:03 2018-12-20 14:04:54 Office Visit Suarez [facility] 1.2.114 350.1.13.10 4.2.7.2.686 [id number] [facility] 2018-12-20 00:00:00 2018-12-20 00:00:00 Orders Only Doctor Unassigned, [place] [facility] 1.20.114 350.1.13.10 4.2.7.2.686 [id number] [facility] Results Test Description Test Time Test Comments Results Result Co mments Source Myrna Mccullough - ExternalPOCT SARS-COV-2 ANTIGEN (BINAX NOW)2023-12-20 22:35:00 * Test Item Value Reference Range Interpretation Comme nts POCT SARS-COV-2 ANTIGEN (test code = 55968-9) Not Detected Not Detected, See Comment On board controls acceptable with C Line (test code = 3574) Yes Lab Interpretation (test code = 84689-8) Normal [facility] MOLECULAR [id number] 19:58:58* Test Item Value Reference Range Interpretation Comme nts POCT Molecular FluA (test co de = 86451-2) Negative Negative POCT Molecular FluB (test co de = 16023-8) Negative Negative Lab Interpretation (test cod e = 83651-5) [facility] MOLECULAR [id number] 19:58:58* Test Item Value Reference Range Interpretation Comme nts POCT Molecular FluA (test co de = 07227-7) Negative Negative POCT Molecular FluB (test co de = 18063-9) Negative Negative Lab Interpretation (test cod e = 28810-8) Normal [facility] MOLECULAR [id number] 19:52:35* Test Item Value Reference Range Interpretation Comme nts POCT Molecular Strep (test c ode = 16819-1) Negative Negative Lab Interpretation (test cod e = 64243-6) [facility] MOLECULAR [id number] 19:52:35* Test Item Value Reference Range Interpretation Comme nts POCT Molecular Strep (test c ode = 26858-0) Negative Negative Lab Interpretation (test cod e = 31916-0) Normal [facility] WITH [id number] 23:06:20* Test Item Value Reference Range Interpretation Comme nts WBC (test code = 6690-2) 7.00 See_Comment [Automated [employer] ge] The system which generated this result transmitted reference range: 4.30 - 11.10 10*3/?L. The reference range was not used to interpret this result as normal/abnormal. RBC (test code = 789-8) 3.85 See_Comment L [Automated messa ge] The system which generated this result transmitted reference range: 3.93 - 5.25 10*6/?L. The reference range was not used to interpret this result as normal/abnormal. HGB (test code = 718-7) 10.8 g/dL 11.6-15.0 L HCT (test code = 4544-3) 35.1 % 35.7-45.2 L MCV (test code = 787-2) 91.2 fL 80.6-95.5 MCH (test code = 785-6) 28.1 pg 25.9-32.8 MCHC (test code = 786-4) 30.8 g/dL 31.6-35.1 L RDW-SD (test code = 34989-0) 44.0 fL 39.0-49.9 RDW-CV (test code = 788-0) 13.2 % 12.0-15.5 PLT (test code = 777-3) 225 See_Comment [Automated messa ge] The system which generated this result transmitted reference range: 166 - 358 10*3/?L. The reference range was not used to interpret this result as normal/abnormal. MPV (test code = 05447-6) 12.3 fL 9.5-12.9 NRBC/100 WBC (test code = 2584221721) 0.0 See_Comment [Automated me ssage] The system which generated this result transmitted reference range: 0.0 - 10.0 /100 WBCs. The reference range was not used to interpret this result as normal/abnormal. NRBC x10^3 (test code = 4027456087) See_Comment [Automated messa ge] The system which generated this result transmitted reference range: 10*3/?L. The reference range was not used to interpret this result as normal/abnormal. GRAN MAT (NEUT) % (test code = 770-8) 62.6 % IMM GRAN % (test code = 5582463508) 0.10 % LYMPH % (test code = 736-9) 27.6 % MONO % (test code = 5905-5) 7.0 % EOS % (test code = 713-8) 2.6 % BASO % (test code = 706-2) 0.1 % GRAN MAT x10^3(ANC) (test code = 4990834849) 4.38 10*3/uL 1.88-7.09 IMM GRAN x10^3 (test code = 4216322545) 0.00-0.06 LYMPH x10^3 (test code = 731-0) 1.93 10*3/uL 1.32-3.29 MONO x10^3 (test code = 742-7) 0.49 10*3/uL 0.33-0.92 EOS x10^3 (test code = 711-2) 0.18 10*3/uL 0.03-0.39 BASO x10^3 (test code = 704-7) 0.01-0.07 Lab Interpretation (test code = 76291-1) Abnormal [facility] WITH [id number] 23:06:20* Test Item Value Reference Range Interpretation Comme nts WBC (test code = 6690-2) 7.00 See_Comment [Automated messa ge] The system which generated this result transmitted reference range: 4.30 - 11.10 10*3/?L. The reference range was not used to interpret this result as normal/abnormal. RBC (test code = 789-8) 3.85 See_Comment L [Automated messa ge] The system which generated this result transmitted reference range: 3.93 - 5.25 10*6/?L. The reference range was not used to interpret this result as normal/abnormal. HGB (test code = 718-7) 10.8 g/dL 11.6-15.0 L HCT (test code = 4544-3) 35.1 % 35.7-45.2 L MCV (test code = 787-2) 91.2 fL 80.6-95.5 MCH (test code = 785-6) 28.1 pg 25.9-32.8 MCHC (test code = 786-4) 30.8 g/dL 31.6-35.1 L RDW-SD (test code = 56673-1) 44.0 fL 39.0-49.9 RDW-CV (test code = 788-0) 13.2 % 12.0-15.5 PLT (test code = 777-3) 225 See_Comment [Automated messa ge] The system which generated this result transmitted reference range: 166 - 358 10*3/?L. The reference range was not used to interpret this result as normal/abnormal. MPV (test code = 25338-9) 12.3 fL 9.5-12.9 NRBC/100 WBC (test code = 7889608216) 0.0 See_Comment [Automated me ssage] The system which generated this result transmitted reference range: 0.0 - 10.0 /100 WBCs. The reference range was not used to interpret this result as normal/abnormal. NRBC x10^3 (test code = 4499128774) See_Comment [Automated messa ge] The system which generated this result transmitted reference range: 10*3/?L. The reference range was not used to interpret this result as normal/abnormal. GRAN MAT (NEUT) % (test code = 770-8) 62.6 % IMM GRAN % (test code = 4834490422) 0.10 % LYMPH % (test code = 736-9) 27.6 % MONO % (test code = 5905-5) 7.0 % EOS % (test code = 713-8) 2.6 % BASO % (test code = 706-2) 0.1 % GRAN MAT x10^3(ANC) (test code = 9577727814) 4.38 10*3/uL 1.88-7.09 IMM GRAN x10^3 (test code = 3342377737) 0.00-0.06 LYMPH x10^3 (test code = 731-0) 1.93 10*3/uL 1.32-3.29 MONO x10^3 (test code = 742-7) 0.49 10*3/uL 0.33-0.92 EOS x10^3 (test code = 711-2) 0.18 10*3/uL 0.03-0.39 BASO x10^3 (test code = 704-7) 0.01-0.07 Lab Interpretation (test code = 10694-7) Abnormal [facility] URINALYSIS W SPECIFIC [id number] 21:16:00* Test Item Value Reference Range Interpretation Comme nts POCT U SP GRAV (test code = 3255) 1.020 mg/dl 1.005-1.025 POCT PH U (test code = 3254) 5 mg/dl 5-8 POCT U LEUK EST (test code = 3263) + Negative - Negative POCT U NIT (test code = 3262) neg Negative - Negati ve POCT U PROT (test code = 3259) neg Negative - Negative POCT U GLU (test code = 3256) norm Negative - Negati ve POCT U KETONE (test code = 3258) neg Negative - Negative POCT U UROBILI (test code = 3260) norm 0.2-1 POCT U BILI (test code = 3261) neg Negative - Negative POCT U BLD (test code = 3257) trace Negative - Negati ve POCT U COLOR (test code = 3266) dark yellow POCT U APPEAR (test code = 3267) [facility] [id number] 21:16:00* Test Item Value Reference Range Interpretation Comme nts POCT U SP GRAV (test code = 3255) 1.020 mg/dl 1.005-1.025 POCT PH U (test code = 3254) 5 mg/dl 5-8 POCT U LEUK EST (test code = 3263) + Negative - Negative POCT U NIT (test code = 3262) neg Negative - Negati ve POCT U PROT (test code = 3259) neg Negative - Negative POCT U GLU (test code = 3256) norm Negative - Negati ve POCT U KETONE (test code = 3258) neg Negative - Negative POCT U UROBILI (test code = 3260) norm 0.2-1 POCT U BILI (test code = 3261) neg Negative - Negative POCT U BLD (test code = 3257) trace Negative - Negati ve POCT U COLOR (test code = 3266) dark yellow POCT U APPEAR (test code = 3267) [facility] Notes Date/Time Note Provider Source 2024-11-07 11:53:15 Chief Complaint Patient presents with Leg Pain Chantel Ballesteros MA [facility] 2024-05-09 13:39:37 Chief Complaint Patient presents with Iud Insertion Kelly Andersen MA [facility] 2024-04-22 13:57:48 Chief Complaint Patient presents with Well Woman Exam nww Kelly Andersen [facility] 2024-04-22 08:12:52 Chief Complaint Patient presents with Physical Vital signs are stable. [phone] (home) [phone] (work) Kareen Still [facility]
--- NOTE | 2024-12-14 13:22 | RAD REPORT ---
EXAMINATION: US RIGHT LOWER EXTREMITY VENOUS DOPPLER CLINICAL INDICATION: [facility] MAIN RLE PAIN Bed Name: IW3 Y TECHNIQUE: Complete bilateral duplex sonography of the RIGHT lower extremity veins was performed. The examination included compression for vein patency, color Doppler imaging and flow augmentation in response to distal compression of the distal external iliac, common femoral, femoral, popliteal, tibi al, and great and small saphenous veins. COMPARISON: No prior exam. FINDINGS: Duplex sonography testing of the veins of the RIGHT lower extremity was performed. Color flow imaging shows all veins to be compressible with [id number] color filling. Pulsatile and phasic flow is present within all lower extremity deep and superficial veins examined. IMPRESSION: No evidence of deep venous thrombosis.
[2024-12-14] MEDS ORDERED: KETOROLAC 30 MG/ML INJ ONE (13:28)
--- NOTE | 2024-12-14 14:00 | RAD REPORT ---
EXAMINATION: XR Femur Right CLINICAL INDICATION: Female, 19 years old. PAIN RIGHT TECHNIQUE: 2 view radiograph of the right femur were obtained. COMPARISON: No prior exam. FINDINGS: No evidence of fracture or dislocation. Normal alignment. No evidence of arthropathy or oth er focal bone lesion. Soft tissues are unremarkable. IUD in place IMPRESSION: No acute or significant abnormalities.
--- NOTE | 2024-12-14 14:01 | RAD REPORT ---
EXAMINATION: XR Tib Fib Right CLINICAL INDICATION: Female, 19 years old. Radiculopathy;Pain TECHNIQUE: 2 view radiograph of the right tibia and fibula were obtained. COMPARISON: No prior exam. FINDINGS: No evidence of fracture or dislocation. Normal alignment. No evidence of arthropathy or oth er focal bone lesion. Soft tissues are unremarkable. IMPRESSION: No acute or significant abnormalities.
--- NOTE | 2024-12-14 14:39 | EDPHYS ---
Physician Documentation [facility] Name: Ai Cormier Age: 19 yrs Sex: Female : 2005 Arrival Date: 12/14/2024 Time: 11:36 Bed DX3 Private MD: ED Physician Carmenza Bennett HPI: 12/14 14:30 This 19 yrs old Female presents to ER via Ambulatory with complaints of Leg ci Pain - RT. 14:30 Patient is a 19-year-old female with no past medical history who presents to the ER ci with chief complaint of right calf pain that began in August. Pain has been intermittent, this episode returned 2 weeks ago. Patient saw her PCP at [facility] who did an x-ray of the lumbar spine and thought she may have sciatica and started her on prednisone. Patient took last dose of prednisone yesterday. 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 - Infectious Disease History:: Denies. - Social history:: Smoking status: Patient denies any tobacco usage or history of. - History obtained from: Boyfriend. ROS: 14:30 Constitutional: Negative for fever, chills, and weight loss, Cardiovascular: Negative ci for chest pain, palpitations, and edema, Respiratory: Negative for shortness of breath, cough, wheezing, and pleuritic chest pain, Abdomen/GI: Negative for abdominal pain, nausea, vomiting, diarrhea, and constipation, 14:30 MS/extremity: Positive for pain, paresthesias, Exam: 14:30 Constitutional: This is a well developed, well nourished patient who is awake, alert, ci and in no acute distress. Neck: Trachea midline, no thyromegaly or masses palpated, and no cervical lymphadenopathy. Supple, full range of motion without nuchal rigidity, or vertebral point tenderness. No Meningismus. Cardiovascular: Regular rate and rhythm with a normal S1 and S2. No gallops, murmurs, or rubs. Normal PMI, no JVD. No pulse deficits. Respiratory: Lungs have equal breath sounds bilaterally, clear to auscultation and percussion. No rales, rhonchi or wheezes noted. No increased work of breathing, no retractions or nasal flaring. Abdomen/GI: Soft, non-tender, with normal bowel sounds. No distension or tympany. No guarding or rebound. No evidence of tenderness throughout. Skin: Warm, dry with normal turgor. Normal color with no rashes, no lesions, and no evidence of cellulitis. MS/ Extremity: Pulses equal, no cyanosis. Neurovascular intact. Full, normal range of motion. Neuro: Awake and alert, GCS 15, oriented to person, place, time, and situation. Cranial nerves II-XII grossly intact. Motor strength 5/5 in all extremities. Sensory grossly intact. Cerebellar exam normal. Normal gait. Vital Signs: 12:17 BP 114 / 75; Pulse 86; Resp 18; Temp 97.9; Pulse Ox 100% on R/A; kb4 14:47 Resp 17; Pain 5/10; ll1 14:47 Pain Scale: Adult ll1 MDM: 12:13 Medical Screening Exam initiated ci 14:30 Differential diagnosis: dislocation, abrasion, tendonitis, DVT, CELLULITIS, SCIATICA. ci Data reviewed: vital signs, nurses notes. ED course: X-ray with no acute fracture. DVT ultrasound study negative. Patient was given Toradol in the ER with significant improvement in pain. Right lower extremity compartments soft, neurovascularly intact with DP/PT 2+, sensation to light touch is intact. No evidence of cellulitis to right lower extremity. Stable for discharge close outpatient follow-up. Will refer to Ortho for further management and investigation.. 12/14 12:25 Order name: XRAY Femur RIGHT; Complete Time: 14:37 ci 12/14 12:25 Order name: XRAY Tib Fib RIGHT; Complete Time: 14:37 ci 12/14 14:37 Interpretation: No acute disease. ci 12/14 12:25 Order name: US Extremity Venous Unilateral Ltd; Complete Time: 14:37 ci 12/14 14:38 Interpretation: No acute disease. ci Administered Medications: 13:32 Drug: Ketorolac IM 30 mg IM once Route: IM; Site: right vastus lateralis; ll1 14:47 Follow up: Response: No adverse reaction; Pain is decreased ll1 13:33 Drug: Methocarbamol PO 500 mg PO once Route: PO; ll1 14:47 Follow up: Response: No adverse reaction; Pain is decreased ll1 Disposition Summary: 12/14/24 14:38 Discharge Ordered Notes: Location: Home ci Condition: Stable ci Diagnosis - Pain in right lower leg ci - Radiculopathy, site unspecified ci Followup: ci - With: Private Physician - When: 1 - 2 days - Reason: Recheck today's complaints, Re-evaluation by your physician Discharge Instructions: - Discharge Summary Sheet ci - Musculoskeletal Pain ci - Radicular Pain ci Forms: - Medication Reconciliation Form ci - Antibiotic Education ci - Prescription Opioid Use ci - Patient Portal Instructions ci - Leadership Thank You Letter ci Prescriptions: - Anaprox DS 550 mg Oral Tablet - take 1 tablet ORAL route every 12 hours As needed; 20 tablet; Refills: 0, ci Product Selection Permitted - Cyclobenzaprine 5 mg Oral Tablet - take 1 tablet ORAL route 3 times per day As needed; 15 tablet; Refills: 0, ci Product Selection Permitted Signatures: Dispatcher [employer] EDMS Ericka Stein RN RN jl7 Dipak Velazco RN RN ll1 Carmneza Bennett Frida Correa RN RN kb4 Corrections: (The following items were deleted from the chart) 12:26 12:26 Extremity Venous Uni Ltd+US.RAD.BRZ ordered. EDMS EDMS 13:07 12:26 Test, Urine+UC.LAB.BRZ ordered. EDMI EDMS 18:44 14:30 ED course: X-ray with no acute fracture. DVT ultrasound study negative. Patient ci was given Toradol in the ER with significant improvement in pain. Stable for discharge close outpatient follow-up. Will refer to Ortho for further management and investigation.. ci
--- NOTE | 2024-12-14 14:39 | ER ---
Nurse's Notes [facility] Name: Ai Cormier Age: 19 yrs Sex: Female : 2005 Arrival Date: 12/14/2024 Time: 11:36 Bed DX3 Private MD: Diagnosis: Pain in right lower leg;Radiculopathy, site unspecified Presentation: 12/14 12:17 Chief complaint: Patient states: c/o "tightness" along lateral R Leg with numbness in R kb4 toes, denies lower back pain at this time. Coronavirus screen: At this time, the client does not indicate any symptoms associated with coronavirus-19. Ebola Screen: No symptoms or risks identified at this time. Initial Sepsis Screen: Does the patient meet any 2 criteria? No. Patient's initial sepsis screen is negative. Does the patient have a suspected source of infection? No. Patient's initial sepsis screen is negative. Risk Assessment: Do you want to hurt yourself or someone else? Patient reports no desire to harm self or others. Onset of symptoms was December 02, 2024 at 00:00. 12:17 Method Of Arrival: Ambulatory kb4 12:17 Acuity: DALE 3 kb4 Triage Assessment: 12:21 General: Appears in no apparent distress. uncomfortable, Behavior is calm, cooperative. kb4 Pain: Complains of pain in right leg Pain currently is 7 out of 10 on a pain scale. 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 - Infectious Disease History:: Denies. - Social history:: Smoking status: Patient denies any tobacco usage or history of. - History obtained from: Boyfriend. Screenin:33 [facility] ED Fall Risk Assessment (Adult) History of falling in the last 3 months, ll1 including since admission No falls in past 3 months (0 pts) Confusion or Disorientation No (0 pts) Intoxicated or Sedated No (0 pts) Impaired Gait Yes (1 pt) Mobility Assist Device Used Yes (1 pt) Altered Elimination No (0 pt) Score/Fall Risk Level 0 - 2 = Low Risk Maintained a safe environment, Hourly rounding (assess needs \\T\\ fall precautionary measures) done. Abuse screen: Denies threats or abuse. Nutritional screening: No deficits noted. Tuberculosis screening: No symptoms or risk factors identified. Assessment: 13:33 Reassessment: No changes from previously documented assessment. Patient and/or family ll1 updated on plan of care and expected duration. Pain level reassessed. 14:22 Reassessment: Patient and/or family updated on plan of care and expected duration. Pain ll1 level reassessed. Vital Signs: 12:17 BP 114 / 75; Pulse 86; Resp 18; Temp 97.9; Pulse Ox 100% on R/A; kb4 14:47 Resp 17; Pain 5/10; ll1 14:47 Pain Scale: Adult ll1 ED Course: 11:58 Patient arrived in ED. cj3 12:13 Carmenza Bennett is Attending Physician. ci 12:21 Triage completed. kb4 12:21 Arm band placed on right wrist. kb4 12:46 US Extremity Venous Unilateral Ltd In Process Unspecified. EDMS 13:12 XRAY Femur RIGHT In Process Unspecified. EDMS 13:12 XRAY Tib Fib RIGHT In Process Unspecified. EDMS 13:33 Patient has correct armband on for positive identification. Provided Education on: ER ll1 procedures and process. 14:22 Patient placed in an exam room, on a stretcher. ll1 14:47 No provider procedures requiring assistance completed. Patient did not have IV access ll1 during this emergency room visit. Administered Medications: 13:32 Drug: Ketorolac IM 30 mg IM once Route: IM; Site: right vastus lateralis; ll1 14:47 Follow up: Response: No adverse reaction; Pain is decreased ll1 13:33 Drug: Methocarbamol PO 500 mg PO once Route: PO; ll1 14:47 Follow up: Response: No adverse reaction; Pain is decreased ll1 Medication: 16:40 VIS not applicable for this client. ll1 Outcome: 14:38 Discharge ordered by . ci 14:47 Patient left the ED. ll1 14:47 Discharged to home ambulatory, ll1 14:47 Condition: stable 14:47 Discharge instructions given to patient, Instructed on discharge instructions, follow up and referral plans. no drinking with medication, no driving heavy equipment, medication usage, Demonstrated understanding of instructions, follow-up care, medications, Prescriptions given X 2, Signatures: Dispatcher [employer] Diapk Galvez RN RN ll1 Iheonunekwu, Frida Boyle RN RN kb4 Laya Avery 3
[2024-12-14 15:02] VITALS: BP 114/75; TEMP 97.9; O2SAT 100
== END 2024-12-14 14:47 | disposition home or self-care (01) ==
LOC: ER 11:36
DX: M54.16 Radiculopathy, lumbar region (principal)
CPT/HCPCS: 93971; 96372; 99284